=== PATIENT | female | born 1985 | race Caucasian/White ===

== ENCOUNTER 2017-05-01 10:22 | Inpatient (IN) | payer BC ==
[2017-05-01] MEDS ORDERED: OLIVE OIL 118 ML BTL MISC PRN (11:26)
[2017-05-01] MEDS ORDERED: EPSOM SALT 454 GM TP PRN (11:26)
[2017-05-01] MEDS ORDERED: LR 1,000 ML IV PRN (11:26)
[2017-05-01] MEDS ORDERED: TERBUTALINE SULFATE 1 MG/ML VIAL IV PRN (11:26)
[2017-05-01] MEDS ORDERED: OXYTOCIN/RINGERS LACTATE 1,000 ML IV PRN (11:26)
[2017-05-01 11:58] LABS: % IMMATURE GRANULYOCYTES 0.6 % (0.0-1.1); ABSOLUTE IMMATURE GRANULOCYTES 0.06 10^3/uL (0.00-0.10); ADD DIFF? NO; ADD MORPH? NO; ADD SCAN? NO; ATYPICAL LYMPHOCYTE FLAG 0 (0-99); FRAGMENT RBC FLAG 0 (0-99); HEMATOCRIT 38.2 % (38.0-47.0); HEMOGLOBIN 12.2 g/dL (12.6-16.3); LEFT SHIFT FLG 0 (0-99); LIPEMIA HEMOLYSIS FLAG 80 (0-99); MEAN CELL HEMOGLOBIN 26.8 pg (27.9-34.1); MEAN CELL HEMOGLOBIN CONCENTR. 31.9 g/dL (32.4-36.7); MEAN PLATELET VOLUME 12.4 fL (8.7-11.7); PLATELET CLUMPS FLAG 30 (0-99); PLATELET COUNT 127 10^3/uL (150-400); RED BLOOD CELL COUNT 4.55 10^6/uL (4.18-5.33); RED CELL DISTRIBUTION WIDTH 13.2 % (11.5-15.2)
[2017-05-01] MEDS ORDERED: LR 500 ML IV PRN (12:05)
[2017-05-01] MEDS: CLINDAMYCIN 900 MG/DEXTROSE 50 ML IV SCH ×2 (12:13→23:31)
[2017-05-01] MEDS ORDERED: OXYTOCIN/LR *STANDARD DOSE PROTOCOL IV SCH (12:30)
[2017-05-01] MEDS ORDERED: OXYTOCIN/RINGERS LACTATE 500 ML IV SCH (12:30)
--- NOTE | 2017-05-01 13:27 | GHP ---
[f rep st] PREOP HISTORY AND PHYSICAL DATE OF ADMISSION: 05/01/2017 ADMISSION DIAGNOSES: 1. Intrauterine at 39 and 4/7 weeks gestation. 2. Oligohydramnios. 3. History of previous low transverse section. 4. History of idiopathic thrombocytopenic purpura. HISTORY OF PRESENT ILLNESS: The patient is a 31-year-old 3, para 1-0-1-1, who is 39 and 4/7 weeks gestation. She has a history of previous low transverse section for arrest of desce nt and macrosomia. The patient has hoped to have a vaginal after section. She has been adequately counseled on the risks of attempting a vaginal after section due to her previous section being for arrest of descent, but the patient is hoping to proceed. The pat ient presented today for repeat ultrasound to follow up on her fluid. Her OMAR was less than 5 cm. The recommendation has been made for patient to be delivered. The patient's cervix 3-4 cm dilated, 70% effaced, and -1 station. The head feels well engaged. We had a long discussion about proceedin g with a repeat low transverse section versus attempting an induction of labor. Patient is agreeable to the induction of labor, and is aware of the risk of uterine rupture. The plan will be to start low-dose Pitocin and break her bag of water, and follow her carefully, and if she is not p rogressing at an appropriate rate or status becomes unreassuring, or the patient's head is not descending, that we will proceed with a repeat section. Risks and benefits have been exte nsively reviewed. The patient has signed the consent form. MEDICAL HISTORY: Significant for depression, history of migraines, history of ITP, history of postp artum preeclampsia. MEDICATIONS: vitamins and iron. SURGICAL HISTORY: Eye surgery, wisdom tooth extraction, section. ALLERGIES: Penicillin. SOCIAL HISTORY: Patient is . 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 She lives with her and their other child. She denies tobacco, alcohol, or drug use. FAMILY MEDICAL HISTORY: Noncontributory. 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 Periods every 28 days, lasting 3-5 days. She is a 3, par a 1-0-1-1. In 07/2014, she had a primary low transverse section for arrest of descent and dilation, of a 9 pound 11 ounce female infant. The patient was induced for preeclampsia and postdat es. course was uncomplicated with the exception of depression. In 02/2016, s he had an early spontaneous . No intervention was needed. Current has been uncom plicated. Patient does have a history of ITP. We have been following her platelets. Her most rece nt platelets prior to today's visit were 103, today they were 127. Patient denies any history of an y abnormal Pap or sexually transmitted diseases. REVIEW OF SYSTEMS: 10-point review of systems is negative. There is positive movement. No v aginal bleeding. Denies any headache, changes in vision, nausea, vomiting, fevers, or chills. OBJECTIVE: VITAL SIGNS: Vital signs are stable. GENERAL APPEARANCE: Alert and oriented x3. HEAR T: Rate is regular regular. LUNGS: Clear to auscultation bilaterally. ABDOMEN: Gravid, nondiste nded, nontender. EXTREMITIES: Reveal no calf tenderness or edema. NECK: Mobile and supple. PSYC H: She has appropriate affect. CERVICAL EXAM: She is 4 cm dilated, 70% effaced, and -1 station. She is having occasional contractions. heart tracing is category 1. is in the vertex presentation. OMAR is less than 5. LABORATORY DATA: The patient's labs: Blood type O negative, antibody screen negative. Ru nataliia immune. GBS positive. HBsAg negative. HIV negative. Her 50 g glucose was 119. Her GBS is positive. Her platelets have been between 84 and 100, in currently 127. Her 24 hour urin e protein baseline was negative Verifi screen was negative. ASSESSMENT AND PLAN: A 31-year-old 3, para 1-0-1-1, who is 39 and 4/7 weeks' gestation. Jacobo haiedr has a history of a previous low transverse section for arrest of descent with a macrosomi c infant. She has a favorable cervix today and is brought over for oligohydramnios. We had a long discussion, she wants to proceed with induction of labor with close observation, and is agreeable to a section if indicated. /[id number]/MODL
[2017-05-01] MEDS ORDERED: CLINDAMYCIN 900 MG/DEXTROSE 50 ML IV SCH (14:00)
[2017-05-01] MEDS ORDERED: OLIVE OIL 118 ML BTL ONE (17:12)
[2017-05-01] MEDS ORDERED: LIDOCAINE 1% 300 MG/30 ML SDV ONE (17:12)
[2017-05-01] MEDS ORDERED: AMMONIA AROMATIC 1 EACH AMP IH ONE (17:12)
[2017-05-01] MEDS ORDERED: OXYTOCIN 10 UNIT/ML VIAL ONE (17:13)
[2017-05-01] MEDS ORDERED: TERBUTALINE SULFATE 1 MG/ML VIAL ONE (17:13)
[2017-05-01] MEDS ORDERED: MISOPROSTOL 200 MCG TAB ONE (17:13)
--- NOTE | 2017-05-01 17:22 | OBPROG ---
Labor Progress Note Assessment/Plan: Assessment: Plan: - . Subjective/Intrapartum Course: 05/01/17 17:20 doing well. very uncomfortable. declines epidural. may want nitrous oxide. felt trickle of fluid. sve- still intact. arom. small amount of clear fluid noted. Objective: 05/01/17 11:30 Patient ABO/Rh O NEGATIVE 05/01/17 12:30 - SVE Dilation (cm): 5 Effacement (%): 90 Station: -1 Membranes: AROM Amniotic Fluid Color: Clear Oxytocin Orders Assessment - Pre-Induction/Augmentation Assessment Gestational Age: 39 week(s) and 4 day(s) ICD10 Worksheet Patient Problems: Problems Problem Status Onset First stage of labor Acute ITP (idiopathic thrombocytopenic purpura) Acute delivery delivered Acute Arrest of descent, delivered, current hospitalization Acute
--- NOTE | 2017-05-01 19:06 | OBPROG ---
Labor Progress Note Assessment/Plan: Assessment: Plan: - . Subjective/Intrapartum Course: 05/01/17 17:20 doing well. very uncomfortable. declines epidural. may want nitrous oxide. felt trickle of fluid. sve- still intact. arom. small amount of clear fluid noted. 05/01/17 19:05 patient rapidly progressed to complete and pushing after arom. Objective: 05/01/17 11:30 Patient ABO/Rh O NEGATIVE 05/01/17 12:30 - SVE Dilation (cm): 10 Effacement (%): 100 Station: +1 Membranes: AROM Amniotic Fluid Color: Clear - Contraction Pattern Assessment Current Contraction Pattern: Regular Oxytocin Orders Assessment - Pre-Induction/Augmentation Assessment Gestational Age: 39 week(s) and 4 day(s) ICD10 Worksheet Patient Problems: Problems Problem Status Onset First stage of labor Acute Arrest of descent, delivered, current hospitalization Acute delivery delivered Acute ITP (idiopathic thrombocytopenic purpura) Acute
[2017-05-01] MEDS ORDERED: HYDROCODONE/APAP 5/325 TAB PO PRN (19:08)
[2017-05-01] MEDS ORDERED: HYDROCORTISONE 0.5% CREAM TP PRN (19:08)
[2017-05-01] MEDS ORDERED: ACETAMINOPHEN 325 MG TAB PO PRN (19:08)
[2017-05-01] MEDS ORDERED: SIMETHICONE 80 MG TAB CHEW PO PRN (19:08)
[2017-05-01] MEDS ORDERED: OXYTOCIN 10 UNIT/ML VIAL IM ONE (19:09)
[2017-05-01] MEDS: IBUPROFEN 600 MG TAB PO PRN (19:40)
--- NOTE | 2017-05-01 19:55 | OBDEL ---
Info Type: Vaginal Presentation at Delivery: Vertex L&D Analgesia/Anesthesia Type: Nitrous GBS+: Yes Antibiotic Used for + GBS: Clindamycin (delivery noted completed via Arcelia Donaldson documentation) Intrapartum Medications: Generic Name Dose Route Start Last Admin Trade Name Freq PRN Reason Stop Dose Admin Lactated Ringer's 1,000 mls @ 0 mls/hr 05/01/17 11:26 05/01/17 12:13 Lr IV 10/28/17 11:25 1,000 mls PRN PRN Administration SEE PROTOCOL CONDITIONS Protocol Per Protocol Clindamycin Phosphate/Dextrose 50 mls @ 100 mls/hr 05/01/17 12:15 05/01/17 12 :13 Cleocin 900 Mg (Premix) IV 05/31/17 12:14 50 mls Q8H MAKENZIE Administration Protocol Oxytocin 30 unit/ Lactated 503 mls @ 0 mls/hr 05/01/17 12:30 05/01/17 12:49 Ringer's IV 10/28/17 12:29 503 mls CONT MAKENZIE Administration Protocol Per Protocol - Hospital Course Intrapartum: 05/01/17 17:20 doing well. very uncomfortable. declines epidural. may want nitrous oxide. felt trickle of fluid. sve- still intact. arom. small amount of clear fluid noted. Indications for Delivery: Oligohydramnios Vaginal Delivery - Delivery Provider Delivery Physician/CNM: Alma Greenfield Proctoring Provider: Amber Donaldson - Labor and Delivery Rupture of Membranes Type: Artificial Amniotic Fluid Color: Clear Data Maldonado Delivery Date: 05/01/17 Delivery Time: 18:28 BIRGIT: 05/04/17 Gestational Age: 39 week(s) and 5 day(s) Sex of Infant: Female Weight (gm): 3342 g Score (1 Min): 8 Score (5 Min): 9 ICD10 Worksheet Patient Problems: Problems Problem Status Onset First stage of labor Acute Arrest of descent, delivered, current hospitalization Acute delivery delivered Acute ITP (idiopathic thrombocytopenic purpura) Acute
--- NOTE | 2017-05-01 20:44 | OBDEL ---
Info Type: Vaginal Presentation at Delivery: Vertex L&D Analgesia/Anesthesia Type: Nitrous GBS+: Yes Antibiotic Used for + GBS: Clindamycin Intrapartum Medications: Generic Name Dose Route Start Last Admin Trade Name Freq PRN Reason Stop Dose Admin Lactated Ringer's 1,000 mls @ 0 mls/hr 05/01/17 11:26 05/01/17 12:13 Lr IV 10/28/17 11:25 1,000 mls PRN PRN Administration SEE PROTOCOL CONDITIONS Protocol Per Protocol Clindamycin Phosphate/Dextrose 50 mls @ 100 mls/hr 05/01/17 12:15 05/01/17 12 :13 Cleocin 900 Mg (Premix) IV 05/31/17 12:14 50 mls Q8H MAKENZIE Administration Protocol Oxytocin 30 unit/ Lactated 503 mls @ 0 mls/hr 05/01/17 12:30 05/01/17 12:49 Ringer's IV 10/28/17 12:29 503 mls CONT MAKENZIE Administration Protocol Per Protocol - Hospital Course Intrapartum: 05/01/17 17:20 doing well. very uncomfortable. declines epidural. may want nitrous oxide. felt trickle of fluid. sve- still intact. arom. small amount of clear fluid noted. Indications for Delivery: Oligohydramnios Vaginal Delivery - Delivery Provider Delivery Physician/CNM: Alma Greenfield Proctoring Provider: Amber Donaldson - Labor and Delivery Onset of Contractions Date: 05/01/17 Onset of Contractions Time: 14:00 Onset of Contractions Type: Induced Rupture of Membranes Date: 05/01/17 Rupture of Membranes Time: 17:03 Rupture of Membranes Type: Artificial Amniotic Fluid Color: Clear Dilation Complete Date: 05/01/17 Dilation Complete Time: 17:30 Placenta Delivery Date: 05/01/17 Placenta Delivery Time: 18:37 Total Hours of Labor: 4 Non-surgical Procedures: Amniotomy Laceration: 1st Degree, Other (Specify) (right labial) Repair: 3-0, Vicryl Vaginal Sponge Count Correct: Yes Vaginal Needle Count Correct: Yes Vaginal Sweep Performed: No EBL: 200 Delivery Events: None - Medications Labor Augmentation/Induction Methods Used: Pitocin Labor Augmentation/Induction Indication: Other (Specify) (oligo) [place] Data Maldonado Delivery Date: 05/01/17 Delivery Time: 18:28 BIRGIT: 05/04/17 Gestational Age: 39 week(s) and 4 day(s) Sex of : Female Weight (gm): 3342 kg Score (1 Min): 8 Score (5 Min): 9 ICD10 Worksheet Patient Problems: Problems Problem Status Onset First stage of labor Acute Arrest of descent, delivered, current hospitalization Acute delivery delivered Acute ITP (idiopathic thrombocytopenic purpura) Acute
[2017-05-02] MEDS: DOCUSATE SODIUM 100 MG CAP PO PRN ×2 (07:57→20:16)
[2017-05-02] MEDS: IBUPROFEN 600 MG TAB PO PRN ×3 (07:57→20:16)
--- NOTE | 2017-05-02 14:07 | OBPP ---
Progress Note Assessment/Plan: Assessment: Normal PP Day #1, s/p 1st degree laceration Plan: routine PP care cont increase water intake plan to d/c home tomorrow 05/02/17 14:06 05/02/17 14:07 Subjective/ Course: 05/02/17 14:08 Pt doing well, no complaints she denies any pain or heavy bleeding She is is at BS, supportive Objective: 05/01/17 11:30 Patient ABO/Rh O NEGATIVE 05/01/17 12:30 Temp Pulse Resp BP Pulse Ox 36.3 C 77 16 99/61 L 97 05/02/17 08:00 05/02/17 08:00 05/02/17 08:00 05/02/17 08:00 05/02/17 08:00 Exam: CV: RRR, no murmur Resp: CTA-B Abd: soft, nontender, +BSx4 Uterus: firm @ U-2 Lochia: min rubra Extrem: trace edema, negative shala's sign Uterine Position/Fundal Height: Umbilicus -2, Midline Uterine Tone: Firm
[2017-05-02 23:19] VITALS: TEMP 97.6
[2017-05-03] MEDS: IBUPROFEN 600 MG TAB PO PRN ×3 (04:35→17:19)
[2017-05-03] MEDS: DOCUSATE SODIUM 100 MG CAP PO PRN (10:00)
--- NOTE | 2017-05-03 10:00 | OBPP ---
Progress Note Assessment/Plan: Assessment: 31 y/o PPD #2 s/p successful . Plan: Ibuprofen prn pain. D/c home today with [facility]-up [facility] 4 and 6 weeks. 05/03/17 09:59 Subjective/ Course: 05/02/17 14:08 Pt doing well, no complaints she denies any pain or heavy bleeding She is is at BS, supportive Baby is under bili lights and likely needing to stay one more night. They are ready to d/c to [facility]. 05/03/17 09:58 Objective: 05/01/17 11:30 Patient ABO/Rh O NEGATIVE 05/01/17 12:30 Temp Pulse Resp BP Pulse Ox 36.4 C 75 16 94/60 L 94 05/02/17 23:19 05/02/17 22:00 05/02/17 22:00 05/02/17 22:00 05/02/17 22:00 Uterine Position/Fundal Height: Umbilicus -2 Uterine Tone: Firm
[2017-05-03 13:58] VITALS: BP 106/75; PULSE 82; RESP 14; O2SAT 95
== END 2017-05-03 18:00 | disposition home or self-care (01) | DRG 775 ==
LOC: FLD 10:22 → FOB 21:28
PROVIDERS: ADMIT Obstetrics & Gynecology; ATTEND Obstetrics & Gynecology
PROC: 10E0XZZ Delivery of Products of Conception, External Approach (ICD-10-PCS; principal; 2017-05-01)
PROC: 3E033VJ Introduction of Other Hormone into Peripheral Vein, Percutaneous Approach (ICD-10-PCS; principal; 2017-05-01)
PROC: 10907ZC Drainage of Amniotic Fluid, Therapeutic from Products of Conception, Via Natural or Artificial Opening (ICD-10-PCS; principal; 2017-05-01)
PROC: 0HQ9XZZ Repair Perineum Skin, External Approach (ICD-10-PCS; principal; 2017-05-01)
DX: O41.03X0 Oligohydramnios, third trimester, not applicable or unspecified (principal); O70.0 First degree perineal laceration during delivery; O34.211 Maternal care for low transverse scar from previous cesarean delivery; Z3A.39 39 weeks gestation of pregnancy; Z37.0 Single live birth
CPT/HCPCS: J3105